=== PATIENT | female | born 1955 | race African-American/Black ===

== ENCOUNTER → 2020-03-11 | Emergency (ER) | payer SELFPAY ==
[~2020-03-11] VITALS: Ht 162.6 cm; Wt 56.0 kg
[~2020-03-11] MED LIST: NOREPINEPHRINE 8 MG in DEXT 5% WATER 242 ML IV PRN; NOREPINEPHRINE 8 MG in SODIUM CHLORIDE 0.9% 242 ML IV PRN; PIPERACILLIN/TAZ 3.375G PREMIX 50 ML IV ONE; SODIUM CHLORIDE 0.9% 1000ML BAG (SEPSIS BOLUS) IV ONE; VANCOMYCIN 1 G PREMIX 200 ML IV ONE
[2020-03-11 16:30] VITALS: BP 74/40
== END ==
LOC: ER 15:25
DX: I46.9 Cardiac arrest, cause unspecified (principal); C50.919 Malignant neoplasm of unspecified site of unspecified female breast; Z87.891 Personal history of nicotine dependence
CPT/HCPCS: 31500; 36556; 71045; 82962; 92950; 93005; 96365; 99285; J7030